=== PATIENT | female | born 1990 | race Two or more races ===

== ENCOUNTER 2017-08-27 14:33 | Emergency (ER) | payer OTHER ==
[~2017-08-27] VITALS: Ht 162.6 cm; Wt 59.4 kg
--- NOTE | 2017-08-27 15:05 | NUR ---
Dr Smith at the bedside for eval and exam.
[2017-08-27] MEDS ORDERED: FAMOTIDINE 20 MG TABLET PO ONE (15:15)
[2017-08-27] MEDS ORDERED: predniSONE 50 MG TABLET PO ONE (15:15)
[2017-08-27] MEDS ORDERED: diphenhydrAMINE 50 MG/1 ML VIAL IM ONE (15:15)
[2017-08-27] MEDS ORDERED: predniSONE 50 MG TABLET ONE (15:26)
[2017-08-27] MEDS ORDERED: FAMOTIDINE 20 MG TABLET ONE (15:26)
[2017-08-27] MEDS ORDERED: diphenhydrAMINE 50 MG/1 ML VIAL ONE (15:26)
--- NOTE | 2017-08-27 15:33 | NUR ---
PT STATES RASH IS BECOMING LESS RED AND DISCOMFORT IS BETTER.
--- NOTE | 2017-08-27 15:43 | NUR ---
Patient discharged to home in stable conditon. Written and verbal after care instructions given. Patient verbalizes understanding of instructions.
[2017-08-27 15:44] VITALS: BP 105/66
== END 2017-08-27 15:49 | disposition home or self-care (01) ==
LOC: ER 14:33
DX: T78.1XXA Other adverse food reactions, not elsewhere classified, initial encounter (principal); X58.XXXA Exposure to other specified factors, initial encounter
CPT/HCPCS: 96372; 99283; A4663; J1200; J7512